=== PATIENT | female | born 1980 | race African-American/Black ===

== ENCOUNTER 2017-01-05 08:11 | Emergency (ER) | payer BC ==
[~2017-01-05 08:11] MED LIST: CAT1 PO; CAT3 PO; DENIES HOME MEDS; VENTOLIN HFA INH
[2017-01-05 08:18] LABS: ER CBC TAT 0 Hrs 05 Mins; HEMATOCRIT 40.6 % (36.0-48.0); MEAN CORPUS HGB CONC 34.5 g/dL (32.0-36.0); MEAN CORPUSCULAR HEMOGLOB 32.9 pg (26.0-34.0); MEAN CORPUSCULAR VOLUME 95.5 fL (80-100); PLATELET COUNT 214 10/3/uL (150-400); RBC DISTRIBUTION WIDTH 13.6 % (12.0-16.0); RED CELL COUNT 4.25 10/6/uL (4.0-5.6); WHITE BLOOD CELLS 9.5 10/3/uL (4.5-10.5)
[2017-01-05 08:22] LABS: MANUAL DIFF NO %
[2017-01-05 08:25] LABS: ASCORBIC ACID (UR NOT ORDER) NEG (NEG); BILIRUBIN, URINE NEGATIVE (NEG); ER URINALYSIS TAT 0 Hrs 12 Mins; KETONE, URINE NEGATIVE (NEG); LEUKOCYTE ESTERASE(NOT OR TRACE (NEG); NITRITE (URINE) NEG (NEG); WBC (NOT ORDERED) (RFLEX) 8 (0-5)
[2017-01-05 08:33] LABS: A/G RATIO 1.2 (0.7-1.9); ALBUMIN 3.8 G/DL (3.5-5.0); ALKALINE PHOSPHATASE 61 U/L (45-117); BUN (BLOOD UREA NITROGEN) 12 MG/DL (6-23); CALCIUM, SERUM 8.8 MG/DL (8.5-10.4); CHLORIDE, SERUM 109 MMOL/L (96-112); CO2 (CARBON DIOXIDE) 26 MMOL/L (24-34); CREATININE 0.78 MG/DL (0.55-1.02); GFR AFRICAN AMERICAN 112 ML/MIN (>=60); GFR NON AFRICAN AMERICAN 96 ML/MIN (>=60); GLOBULIN 3.3 G/DL (2.5-4.1); GLUCOSE, SERUM 86 MG/DL (60-99); POTASSIUM, SERUM 3.8 MMOL/L (3.5-5.3); SGOT(AST) 10 U/L (5-40); SGPT(ALT) 14 U/L (5-65); SODIUM, SERUM 142 MMOL/L (135-148); TOTAL BILIRUBIN 0.5 MG/DL (0-1.2); TOTAL PROTEIN 7.1 G/DL (6.0-8.5)
[2017-01-05 08:47] LABS: EOSINOPHILS 1 %; ER DIFF TAT 0 Hrs 34 Mins; LYMPHOCYTES 51 %; LYMPHOCYTES ABSOLUTE (CALC) 4.85 10/3/uL (0.67-4.30); MONOCYTES 4 %; MONOCYTES ABSOLUTE (CALC) 0.38 10/3/uL (0.21-1.20); NEUTROPHILS ABSOLUTE (CALC) 4.18 10/3/uL (2.02-8.40); PLATELET ESTIMATE ADQ (ADEQUATE); SEGMENTED NEUTROPHIL (0) 44 %; TOTAL NUCLEATED CELLS 100
== END 2017-01-05 11:19 | disposition home or self-care (01) ==
LOC: ER 08:11
PROVIDERS: Physician Assistant
DX: R31.9 Hematuria, unspecified (principal); I10 Essential (primary) hypertension; Z79.899 Other long term (current) drug therapy
CPT/HCPCS: 74176; 80053; 81001; 83690; 85025; 96374; 96375; 99284; J1170; J2270; J2405